=== PATIENT | female | born 1965 | race Caucasian/White ===

== ENCOUNTER → 2019-11-24 09:38 | Outpatient (CLI) | payer OTHER | END | disposition home or self-care (01) | LOC: D.HCCECHO 09:38 | PROVIDERS: ATTEND Internal Medicine Interventional Cardiology | DX: I20.9 Angina pectoris, unspecified (principal); R01.1 Cardiac murmur, unspecified ==

== ENCOUNTER → 2020-06-28 08:48 | Outpatient (CLI) | payer OTHER ==
[2019-12-30 11:17] VITALS: BMI 29.4
[~2020-06-28 08:48] MED LIST: BAYER CHEWABLE81 MG PO; GLUCOPHAGE1000 MG PO; LIPITOR40 MG PO; LOPRESSOR25 MG PO; NAPROSYN500 MG PO; NITROQUICK0.4 MG SL; OMEPRAZOLE20 M1 PO; PLAVIX75 MG PO
--- NOTE | 2020-06-29 07:59 | ST ---
PATIENT:VLADIMIR JOHNSON MEDICAL RECORD: [id number] SEX: F LOCATION:[facility] ORDER #: ADMISSION DATE: 06/28/20 AGE OF PATIENT: 55 REFERRING PHYSICIAN: INTERPRETING PHYSICIAN: PATSY OLIVERA MD DATE OF SERVICE: 06/28/2020 NUCLEAR STRESS TEST GATED: Gated is normal. Normal wall motion. Normal wall thickening. Calculated EF 75%. SPECT IMAGING: SPECT imaging was performed. 1. Short axis view: Short axis view shows good uptake along the anterior wall, lateral wall, and inferior wall. 2. Horizontal axis: Horizontal axis confirms good uptake along the anterior wall and inferior wall. 3. Vertical axis: Vertical axis shows good uptake along the lateral wall and septum. FINAL IMPRESSION: 1. Normal gated, normal wall motion, calculated EF 75%. 2. Normal SPECT imaging. This patient with known history of coronary artery disease. The scan shows no active ischemia. LV function remains normal. Continue medical management. Risk factor modification is recommended. 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
== END | disposition home or self-care (01) ==
LOC: D.HCCARDIO 08:48
PROVIDERS: ATTEND Internal Medicine Interventional Cardiology
DX: I48.91 Unspecified atrial fibrillation (principal)